=== PATIENT | female | born 1990 | race Native Hawaiian/Other Pacific Islander ===

== ENCOUNTER 2016-12-21 01:09 | Inpatient (IN) | payer OTHER ==
[2016-12-26] MEDS ORDERED: IV START KIT ONE (05:59)
[2016-12-26] MEDS ORDERED: LACTATED RINGERS 1,000 ML ONE (05:59)
[2016-12-26] MEDS ORDERED: OXYTOCIN 10 UNITS/ML VIAL ONE (06:00)
[2016-12-26] MEDS ORDERED: SODIUM CHLORIDE 0.9% FLUSH 10 ML ONE (06:00)
[2016-12-26] MEDS ORDERED: OXYTOCIN IN LR 500 ML IV ONE ×3 (06:00→06:30)
[2016-12-26] MEDS ORDERED: MINERAL OIL 25 ML BOT ONE (06:00)
[2016-12-26] MEDS ORDERED: LIDOCAINE Viscous 2% 15 ML UDCUP ONE (06:00)
[2016-12-26] MEDS ORDERED: LIDOCAINE 1% (PRES FREE) 30 ML VIAL ONE (06:00)
[2016-12-26] MEDS ORDERED: PUMP TUBING ONE (06:00)
[2016-12-26 06:43] VITALS: BMI 39.8
[2016-12-26 06:56] LABS: HEMATOCRIT 37.1 % (37.0-47.0); HEMOGLOBIN 11.8 gm/l (12.0-16.0); MEAN CELL VOLUME 80.7 fl (81.0-99.0); MEAN CORPUSCULAR HEMOGLOBIN 25.7 pg (27.0-31.0); MEAN CORPUSCULAR HGB CONC 31.8 g/dl (33.0-37.0); RED CELL DISTRIBUTION WIDTH 14.2 % (11.5-14.5)
--- NOTE | 2016-12-26 07:59 | PCMAN ---
OB Admission Note - History : 2 Term: 1 : 0 Abortions (S&E): 1 Livin Gestational Age (weeks): 40 Days (#/7): 5 Admit Cervical Dilation:: 4 Admit Cervical Effacement (%):: 50 Admit Station:: -2 Admit Presentaton:: Vertex Membrane Status: Bulging Labor Onset (Date): 12/26/16 Labor Onset (Time): 05:00 Contractions: Yes Contraction Frequency:: every 3-5 minutes Heart Rate:: 140 Status:: cat I EFW:: 3500 Summary of Course:: uneventful GDM a1 well controlled - Labs Blood Type: O (+) positive Rubella Status: Immune GBS Status: Negative Abnormal Labs: Other (Abnormal 3 hour gtt - GDM a1 well controlled) - Review of Systems negative 12 system ROS - Problems (1) Status: Acute Code: Z33.1 Assessment/Plan: 26yo at 40 + 5 who arrived in spontaneous labor dilated to 4/5/-2, GBS negative. GDM a1 throughout well-controlled. 3rd trimester U/S with normal growth curve. Plan: Expectant management (2) Gestational diabetes mellitus (GDM) affecting second Status: Acute Code: O24.419
[2016-12-26] MEDS: LACTATED RINGERS 1,000 ML IV PRN ×2 (08:47→22:00)
[2016-12-26] MEDS ORDERED: BLISTEX LIPSTICK 1 EACH TP PRN (10:15)
[2016-12-26] MEDS: FENTANYL 100 MCG/2 ML VIAL IV ONE ×2 (17:22→18:25)
[2016-12-26] MEDS ORDERED: EPIDURAL PROCEDURE TRAY ONE (18:47)
[2016-12-26] MEDS ORDERED: BUPIVACAINE 0.25% (PRES FREE) 30 ML VIAL ONE (18:47)
--- NOTE | 2016-12-26 19:00 | PDOC43 ---
- Subjective Pt is tiring out, unchanged on her cervix, blade hard, desiring an epidural after fentanyl. - Objective Laboratory 12/26/16 06:30 12/26/16 06:30 MCV 80.7 L MCH 25.7 L MCHC 31.8 L Active Medication Orders Category Date Time Status Lactated Ringers 1,000 ml Med 12/26/16 06:10 Active IV 100 mls/hr Lip [place] [Blistex] Med 12/26/16 10:15 Active 1 each TP PRN PRN Sodium Chloride 0.9% Flush [Normal Saline 10ml Flush] Med 12/26/16 06:10 Active 10 ml IV PRN PRN Sodium Chloride 0.9% Flush [Normal Saline 10ml Flush] Med 12/26/16 09:00 Active 10 ml IV Q8HR - Assessment/ Plan: (1) Status: Acute Assessment/ Plan: 26yo at 40 + 5 who arrived in spontaneous labor dilated to 4/-2, GBS negative. GDM a1 throughout well-controlled. 3rd trimester U/S with normal growth curve. Plan: Expectant management (2) Gestational diabetes mellitus (GDM) affecting second Status: Acute Assessment/ Plan: Cat 1 ctxs q2-3min. without any long breaks /-2 - unable to evaluate head position with redundant scalp skin and cervix Plan for an epidural and continue expectant management.
[2016-12-26] MEDS ORDERED: FENTANYL/ROPIVACAINE EPIDURAL 250 ML EP ONE (19:20)
[2016-12-26] MEDS ORDERED: EPIDURAL PUMP SET ONE (19:20)
[2016-12-26] MEDS ORDERED: LIDOCAINE 1% 2 ML VIAL SUB-Q ONE (22:50)
[2016-12-26] MEDS ORDERED: LIDOCAINE 1% (PRES FREE) 30 ML VIAL SUB-Q ONE (23:30)
--- NOTE | 2016-12-26 23:33 | PCMDEL ---
Delivery Note - Labor 1st stage (hr/min):: 05:15 - 22:10 2nd stage (hr/min):: 22:10 - 22:23 3rd stage (hr/min):: 22:23 - 22:29 Total (hr/min):: 05:15 - 22:29 Pushed (hr/min):: 2 min - Delivery Delivery (Date): 12/26/16 Delivery (Time): 22:23 Gender: Male Presentation: Cephalic Position: OA Umbilical Cord: 3 Vessel Delayed Cord Clamping:: Not Performed Placenta:: intact EBL:: 300 Perineum:: 2nd degree laceration - perineal Suture:: 3-0 vicryl used to repair laceration in the usual fashion Anesthesia/Meds:: epidural & local (xylocaine) Length ROM:: 7 hours 20 min. Comments:: Pt delivered approximately 2 min. before I arrived. Delivery was precipitous despite epidural being in place. Dr. Betts was present for the delivery of the body. The pt's nurse, Maddie, delivered the head. There were no immediate complications. The baby was given some PPV for some clinical difficulty in breathing but his pulse oximetry was always on target. Temp of 99.1 recorded shortly before delivery but this came down to 99.0 right after delivery. No complications. I arrived and took over with Dr. Betts's assistance. Perineum was repaired without complication. Do not anticipate difficult course for mom or baby.
[2016-12-26] MEDS ORDERED: BENZOCAINE/MENTHOL 60 APPLIC/BOT TP PRN (23:35)
[2016-12-26] MEDS ORDERED: OXYCODONE HCL 5 MG TABLET PO PRN (23:35)
[2016-12-26] MEDS ORDERED: CALCIUM CARBONATE 500 MG TAB.CHEW PO PRN (23:35)
[2016-12-26] MEDS ORDERED: LANOLIN 50 APPLIC/7G TUBE TP PRN (23:35)
[2016-12-26] MEDS ORDERED: HYDROCODONE/ACETAMINOPHEN 5/325MG TABLET PO PRN (23:35)
[2016-12-26] MEDS ORDERED: MAGNESIUM HYDROXIDE 30 ML UDCUP PO PRN (23:35)
[2016-12-27] MEDS: ACETAMINOPHEN 325 MG TABLET PO PRN ×4 (01:31→21:39)
[2016-12-27] MEDS ORDERED: IV START KIT ONE (04:07)
[2016-12-27 05:56] LABS: HEMATOCRIT 31.7 % (37.0-47.0); HEMOGLOBIN 9.6 gm/l (12.0-16.0)
[2016-12-27] MEDS: DOCUSATE SODIUM 100 MG CAPSULE PO SCH ×2 (07:58→18:24)
--- NOTE | 2016-12-27 11:51 | PDOC39B ---
Hospital Course: ADMIT DATE: 12/26/16 DISCHARGE DATE: 12/27/16 ADMISSION DIAGNOSES: PROCEDURES: HISTORY OF PRESENT ILLNESS: 26 year old G2 T1 L1 at 40 weeks 5 days presenting with active labor HOSPITAL COURSE: The patient delivered vaginally without complication By day of discharge the patient is ambulating, eating, voiding, and passing flatus without difficulty. Pain is controlled and lochia is appropriate. She is - Physical Exam Vital Signs: Temp Pulse Resp BP Pulse Ox 98.2 F 84 16 95/50 12/27/16 07:35 12/27/16 07:35 12/27/16 07:35 12/27/16 07:35 General: Afebrile, No Acute Distress Neurological: Alert, Oriented x 4 Lungs: Clear to Auscultation Bilaterally Cardiovascular: Regular Rate and Rhythm Fundus: Firm, Midline Extremities: Full ROM, No Edema Skin: Normal Color, Warm, Dry, Intact, No Rash Wound: Dressing Clean/Dry/Intact, Well Approximated - Discharge Diagnosis (1) Status: Acute Assessment/Plan: 26yo at 40 + 5 who arrived in spontaneous labor dilated to 02/25/-2, GBS negative. GDM a1 throughout well-controlled. 3rd trimester U/S with normal growth curve. Plan: Expectant management (2) Gestational diabetes mellitus (GDM) affecting second Status: Acute Assessment/Plan: Cat 1 ctxs q2-3min. without any long breaks /-2 - unable to evaluate head position with redundant scalp skin and cervix Plan for an epidural and continue expectant management. - Discharge Plan Condition: Stable Disposition: Home Additional Instructions: 1. Routine care. 2. Contraception: condoms 3. Feeding: [] 4. Disposition: [Home] 5. [d/c around 21:00 after CCHD and bili checked at 20:00 on 12/27/16 Prescriptions: Docusate Sodium [COLACE 100 MG CAPSULE (SHF)] 100 mg PO BID PRN #30 cap PRN Reason: Constipation Acetaminophen [Tylenol] 325 mg PO Q2-3H PRN #60 tablet PRN Reason: Pain Follow-Up: Darren Wang MD [Staff Physician] - In 6 weeks
[2016-12-28] MEDS: ACETAMINOPHEN 325 MG TABLET PO PRN (01:29)
[2016-12-28 08:14] VITALS: BP 119/73
[2016-12-28] MEDS: DOCUSATE SODIUM 100 MG CAPSULE PO SCH (08:15)
[2016-12-28] MEDS ORDERED: LACTATED RINGERS 1,000 ML ONE (16:29)
--- NOTE | 2016-12-30 11:46 | PDOC39B ---
Hospital Course: ADMIT DATE: 12/26/16 DISCHARGE DATE: 12/28/16 ADMISSION DIAGNOSES: active labor and GDM a1 well controlled PROCEDURES: epidural, , 2nd degree lac repair HISTORY OF PRESENT ILLNESS: 26 year old G2 T1 L1 at 40 weeks 5 days presenting with active labor HOSPITAL COURSE: The patient delivered successfully without any complications By day of discharge the patient is ambulating, eating, voiding, and passing flatus without difficulty. Pain is controlled and lochia is appropriate. She is - Physical Exam Vital Signs: Temp Pulse Resp BP Pulse Ox 98.1 F 78 16 119/73 12/28/16 08:07 12/28/16 08:07 12/28/16 08:07 12/28/16 08:07 General: Afebrile, No Acute Distress Neurological: Alert, Oriented x 4 Lungs: Clear to Auscultation Bilaterally Cardiovascular: Regular Rate and Rhythm Fundus: Firm, Midline Extremities: Full ROM, No Edema Skin: Normal Color, Warm, Dry, Intact, No Rash Wound: Dressing Clean/Dry/Intact, Well Approximated - Discharge Diagnosis (1) Status: Acute Assessment/Plan: 26yo at 40 + 5 who arrived in spontaneous labor dilated to 4/-2, GBS negative. GDM a1 throughout well-controlled. 3rd trimester U/S with normal growth curve. Plan: d/c on 12/28/16 instead of 12/27 as originally planned (2) Gestational diabetes mellitus (GDM) affecting second Status: Acute Assessment/Plan: Will get a 6 week pospartum 1 hour gtt on her - Discharge Plan Condition: Stable Disposition: Home Instruction Forms: Vaginal Discharge Instructions Additional Instructions: 1. Routine care. 2. Contraception: condoms 3. Feeding: [] 4. Disposition: [Home] 5. [d/c around 21:00 after CCHD and bili checked at 20:00 on 12/27/16 Prescriptions: Docusate Sodium [COLACE 100 MG CAPSULE (SHF)] 100 mg PO BID PRN #30 cap PRN Reason: Constipation Acetaminophen [Tylenol] 325 mg PO Q2-3H PRN #60 tablet PRN Reason: Pain Follow-Up: Darren Wang MD [Staff Physician] - In 6 weeks
== END 2016-12-28 12:58 | disposition home or self-care (01) | DRG 775 ==
LOC: EDSTATUS 17:17 → FBC 12-26 05:57
PROVIDERS: ADMIT Family Medicine; ATTEND Family Medicine
PROC: 10E0XZZ Delivery of Products of Conception, External Approach (ICD-10-PCS; principal; 2016-12-26)
PROC: 0KQM0ZZ Repair Perineum Muscle, Open Approach (ICD-10-PCS; 2016-12-26)
PROC: 10907ZC Drainage of Amniotic Fluid, Therapeutic from Products of Conception, Via Natural or Artificial Opening (ICD-10-PCS; 2016-12-26)
PROC: 00HU33Z Insertion of Infusion Device into Spinal Canal, Percutaneous Approach (ICD-10-PCS; 2016-12-26)
DX: O24.420 Gestational diabetes mellitus in childbirth, diet controlled (principal); O70.1 Second degree perineal laceration during delivery; Z3A.40 40 weeks gestation of pregnancy; Z37.0 Single live birth